=== PATIENT | female | born 1970 | race Caucasian/White ===

== ENCOUNTER 2018-04-30 08:13 | Emergency (ER) | payer OTHER ==
[~2018-04-30] VITALS: Ht 157.5 cm; Wt 80.3 kg
[2018-04-30] MEDS ORDERED: OBSTETRIX DHA1 EACH (08:37)
== END 2018-04-30 13:53 | disposition home or self-care (01) ==
LOC: ER 08:13
DX: O20.0 Threatened abortion (principal); Z34.01 Encounter for supervision of normal first pregnancy, first trimester